=== PATIENT | female | born 1955 | race Caucasian/White ===

== ENCOUNTER 2018-02-26 13:01 | Emergency (ER) | payer OTHER ==
[2018-02-26 13:10] VITALS: BP 158/76; BMI 31.8
[2018-02-26] MEDS ORDERED: TORADOL 60 MG VIAL IM ONE (14:12)
--- NOTE | 2018-02-26 14:12 | DR.GENAD ---
HPI - PCP Primary Care Physician: AURELIO - HPI Comment HPI Comment: PATIENT INJURED LT RIB 8 DAYS AGO. INCREASING PAIN SINCE. WORSE TODAY. - Complaint/Symptoms Chief Complaint Doctors Comments: LEFT RIB PAIN TIMES 8 DAYS. Chief Complaint:: "MY LEFT RIB HURTS" Self Treatment fo Chief Complaint: NONE - Nurses notes reviewed Nurses Notes Review: Yes - Source History Provided: Patient - Mode of Arrival Mode of Arrival: Ambulatory - Timing Onset of Chief Complaint: 02/18/18 Came on: Suddenly - Duration Duration: Constant Duration: Days - Severity Severity: Moderate PMH - PMH Past Medical History: Yes Past Medical History: Arthritis Past Medical History Comment: LUPUS, GRAVES, TYPE 2 HEART BLOCK, Past Surgical History: Yes Surgical History: Appendectomy, , Ortho Surgery Past Surgical History Comment: CATARACTS, PACEMAKER - Family History History of Family Medical Conditions: Yes Family Medical History: Diabetes Mellitus, Coronary Artery Disease, Heart Failure, Hypertension - Social History Does patient currently use any type of tobacco product: No Have you used tobacco products in the last 12 months: No Type of Tobacco Use: None Does any household member use tobacco: No Alcohol Use: None Do you use any recreational Drugs:: No Lives With: Family Lives Where: Home - infectious screening In the last 2 months have you had wt loss of >10#?: NO Have you had fever, night sweats or hemotysis?: No Have you traveled outside the country in the last 6 months?: No Isolation: Standard ROS - Review of Systems Constitutional: No Symptoms Reported. negative: Chills, Fever, Weakness, Fatigue Eyes: No Symptoms Reported. negative: Eye Pain, Tearing, Discharge ENTM: No Symptoms Reported. negative: Ear Pain, Nose Discharge, Nose Congestion , Throat Pain Respiratoy: Non-Productive Cough, Short of Breath. negative: Productive Cough, Wheezing, Hemoptysis Cardiovascular: Chest Pain. negative: Edema, Palpitations, Syncope Gastrointestinal/Abdominal: No Symptoms Reported. negative: Abdominal Pain, Constipation, Diarrhea, Nausea Genitourinary: No Symptoms Reported. negative: Dysuria, Frequency, Hematuria Neurological: Headache, Numbness, Weakness, Dizziness Musculoskeletal: Muscle Pain Integumentary: No Symptoms Reported Hematologic/Lymphatic: Easy Bleeding, Easy Bruising Endocrine: No Symptoms Reported All Other Systems: Reviewed and Negative PE - Vital Signs Vitals: Temperature 98.1 F Pulse Rate 87 Respiratory Rate 20 Blood Pressure 158/76 O2 Sat by Pulse Oximetry 100 - General Limitations: No Limitations General Appearance: Alert - Head Head Exam: Normal Inspection - Eyes Eye exam: Normal Appearance - ENT ENT Exam: Normal External Ear Exam External Ear Exam: Normal External Inspection TM/Canal Exam: Bilateral Normal Nose Exam: Normal Nose Exam Mouth Exam: Normal Inspection Throat Exam: Tonsillar Erythema - Neck Neck Exam: Trachea Midline - Chest Chest Inspection: Symmetric Chest Wall Rise - Respiratory Respiratory Exam: Normal Lung Sounds Bilat, Chest Wall Tenderness (RT LOWER RIBS ) Respiratory Exam: Bilateral Clear to Auscultation - Cardiovascular Cardiovascular Exam: Regular Rate, Normal Rhythm, Normal Heart Sounds - Abdominal Exam Abdominal Exam: Normal Bowel Sounds, Soft. negative: Tenderness - Extremities Extremities Exam: Normal Inspection - Back Back Exam: Normal Inspection - Neurologic Neurological Exam: Alert, Oriented X3 - Psychiatric Psychiatric Exam: Normal Affect, Normal Mood - Skin Skin Exam: Normal Color MDM - Differential Diagnosis Differential Diagnosis: RT RIB PAIN/CONTUSION, FRACTURE, MUSCLE STRAIN Course - Treatment Treatment: SEE ORDERS. IM TORADOL IN ED. - Education/Counseling Education/Counseling: Patient, Education Educated On: Treatment, Diagnosis, Needs for Follow Up ROR - XRAY XRAY Interpreted by: Radiologist XRAY Findings: REPORT DISCUSS WITH PATIEN - Diagnosis Discharge Problem: Rib fractures - Discharge Plan Disposition: 01 HOME, SELF-CARE Condition: Stable Prescriptions: Meperidine HCl [Demerol Tab] 50 mg PO Q8H PRN #12 tab PRN Reason: Severe Pain Promethazine HCl [PHENERGAN TAB 25 MG *] 25 mg PO Q8H PRN #12 tab PRN Reason: Nausea/Vomiting - Follow ups/Referrals Follow ups/Referrals: AURY CAREY [Primary Care Provider] - 3 days - Instructions Instructions: Rib Fracture, [id number] Additional Instructions: RETURN TO ED IF WORSE.
--- NOTE | 2018-02-26 14:14 | RAD ---
HISTORY: Left rib pain. Patient states she leaned over the arm of the chair 1 week ago. Patient comp lains of left rib pain anteriorly below the left breast. Study: Three-view left rib series with AP chest Comparison: No priors Findings: Left-sided pacemaker is present with intact leads. Only on the oblique view are there are abnormal co ntours of left 6th and 7th ribs anterolaterally. These are suspicious for fractures. Remainder of oss eous structures are intact. The trachea is midline. There is cardiomegaly with aortic uncoiling. Lungs and pleural spaces are elisa ar. IMPRESSION: Suspect fractures of the antral lateral left 6th and 7th ribs. These are nondisplaced and closed. Reported By:
[2018-02-26] MEDS ORDERED: TORADOL 60 MG VIAL ONE (14:17)
== END 2018-02-26 14:48 | disposition home or self-care (01) ==
LOC: ER 13:18
DX: S22.32XA Fracture of one rib, left side, initial encounter for closed fracture (principal); Y33.XXXA Other specified events, undetermined intent, initial encounter; Y92.9 Unspecified place or not applicable
CPT/HCPCS: 71111; 96372; 99282; J1885